=== PATIENT | female | born 1980 | race Asian ===

== ENCOUNTER 2018-11-07 17:45 | Inpatient (IN) | payer OTHER ==
[2018-12-23] MEDS ORDERED: CARBOPROST 250 MCG INJ IM ×2 (16:00→22:00)
[2018-12-23] MEDS ORDERED: METHYLERGONOVINE 0.2 MG INJ IM ×2 (16:00→22:00)
[2018-12-23] MEDS ORDERED: OXYTOCIN 30 UNITS/LR 500 ML IV ×2 (16:00→22:00)
[2018-12-23] MEDS ORDERED: MISOPROSTOL 200 MCG TAB PR ×2 (16:00→22:00)
[2018-12-23 16:14] LABS: ADD MAN DIFF? NO
[2018-12-23 16:17] LABS: WHITE BLOOD COUNT 7.5 10^3/ul (4.8-10.8)
[2018-12-23 16:17] LABS: BASOPHILS % 0.3 % (0.0-2.0); EOSINOPHILS # 0.1 10^3/ul (0.0-0.5); EOSINOPHILS % 1.7 % (0.0-7.0); HEMATOCRIT 42.3 % (37.0-47.0); HEMOGLOBIN 13.7 g/dl (12.0-16.0); LYMPHOCYTES # 1.6 10^3/ul (0.8-2.9); LYMPHOCYTES % 21.6 % (15.0-51.0); MEAN CORPUSCULAR HEMOGLOBIN 29.6 pg (29.0-33.0); MEAN CORPUSCULAR HGB CONC 32.4 g/dl (32.0-37.0); MEAN CORPUSCULAR VOLUME 91.4 fl (82.0-101.0); MEAN PLATELET VOLUME 9.8 fl (7.4-10.4); MONOCYTE # 0.4 10^3/ul (0.3-0.9); MONOCYTES % 5.3 % (0.0-11.0); NEUTROPHIL # 5.3 10^3/ul (1.6-7.5); NEUTROPHILS % 70.4 % (39.0-77.0); PLATELET COUNT 247 10^3/UL (140-415); RED BLOOD COUNT 4.63 10^6/ul (4.20-5.40); RED CELL DISTRIBUTION WIDTH 14.3 % (11.5-14.5)
[2018-12-23] MEDS: LACTATED RINGER'S 1,000 ML IV (16:21)
[2018-12-23] MEDS: CEFAZOLIN 2 GM/50 ML (PMX) 50 ML IVPB ×2 (16:28→22:27)
[2018-12-23 16:36] LABS: INR 0.82; PROTIME 11.4 Sec (11.9-14.9); PT RATIO 0.9
[2018-12-23 16:37] LABS: PARTIAL THROMBOPLASTIN TIME 29.5 Sec (23.0-35.0)
[2018-12-23] MEDS ORDERED: FENTAnyl 50 MCG/ML VIAL (16:38)
[2018-12-23] MEDS ORDERED: DEXAMETHASONE 4 MG/ML 1 ML INJ (16:38)
[2018-12-23] MEDS ORDERED: morphine SULFATE/PF (10 MG/10 ML) INJ (16:38)
[2018-12-23] MEDS ORDERED: ONDANSETRON 4 MG INJ (16:38)
[2018-12-23] MEDS ORDERED: PHENYLephrine (100 MCG/ML) 10ML SYG (16:59)
[2018-12-23 17:27] LABS: HEPATITIS B SURFACE ANTIGEN NEGATIVE (NEGATIVE)
[2018-12-23] MEDS ORDERED: KETOROLAC 60 MG INJ IM (18:22)
[2018-12-23] MEDS ORDERED: HYDROmorphONE 0.5 MG/0.5 ML SYG IV ×2 (19:00)
[2018-12-23] MEDS ORDERED: NALOXONE (0.4 MG/ML) INJ IV (19:00)
[2018-12-23] MEDS ORDERED: DIPHENHYDRAMINE 50 MG INJ IV (19:00)
[2018-12-23] MEDS ORDERED: ZOLPIDEM 5 MG TAB PO (19:00)
[2018-12-23] MEDS: OXYTOCIN 30 UNITS/LR 500 ML IV (19:09)
[2018-12-23] MEDS: AZITHROMYCIN 500MG/NS (PMX) 250 ML IVPB (19:30)
[2018-12-23] MEDS: KETOROLAC 30 MG INJ IM (19:31)
[2018-12-23] MEDS: ONDANSETRON 4 MG INJ IV (20:46)
[2018-12-23] MEDS ORDERED: LANOLIN HPA 1 PKT TOP (22:00)
[2018-12-23] MEDS ORDERED: NA PHOSPHATE/BIPHOS 133 ML ENEMA PR (22:00)
[2018-12-23] MEDS: CLINDAMYCIN 300 MG CAP PO (23:34)
[2018-12-24] MEDS: LACTATED RINGER'S 1,000 ML IV ×3 (00:59→17:30)
[2018-12-24] MEDS: CLINDAMYCIN 300 MG CAP PO ×4 (06:11→23:56)
[2018-12-24] MEDS: CEFAZOLIN 2 GM/50 ML (PMX) 50 ML IVPB ×2 (06:11→13:34)
[2018-12-24 06:48] LABS: ADD MAN DIFF? NO
[2018-12-24 06:49] LABS: WHITE BLOOD COUNT 13.7 10^3/ul (4.8-10.8)
[2018-12-24 06:49] LABS: BASOPHILS % 0.2 % (0.0-2.0); EOSINOPHILS % 0.1 % (0.0-7.0); HEMATOCRIT 29.6 % (37.0-47.0); HEMOGLOBIN 9.5 g/dl (12.0-16.0); LYMPHOCYTES # 1.4 10^3/ul (0.8-2.9); LYMPHOCYTES % 10.1 % (15.0-51.0); MEAN CORPUSCULAR HEMOGLOBIN 29.5 pg (29.0-33.0); MEAN CORPUSCULAR HGB CONC 32.1 g/dl (32.0-37.0); MEAN CORPUSCULAR VOLUME 91.9 fl (82.0-101.0); MEAN PLATELET VOLUME 10.3 fl (7.4-10.4); MONOCYTE # 0.6 10^3/ul (0.3-0.9); MONOCYTES % 4.7 % (0.0-11.0); NEUTROPHIL # 11.5 10^3/ul (1.6-7.5); NEUTROPHILS % 84.1 % (39.0-77.0); PLATELET COUNT 231 10^3/UL (140-415); RED BLOOD COUNT 3.22 10^6/ul (4.20-5.40); RED CELL DISTRIBUTION WIDTH 14.2 % (11.5-14.5)
[2018-12-24] MEDS: ACCU-CHEK XX ×4 (07:30→20:57)
[2018-12-24] MEDS: metFORMIN (XR) 500 MG TAB PO ×2 (09:09→20:57)
[2018-12-24] MEDS: SENNA/DOCUSATE NA (8.6MG/50MG) TAB PO ×2 (09:10→20:57)
[2018-12-24] MEDS: BISACODYL 10 MG SUPP PR (10:51)
[2018-12-24] MEDS: KETOROLAC 30 MG INJ IV ×2 (11:29→17:20)
[2018-12-24 15:05] LABS: RAPID PLASMA REAGIN NONREACTIVE (NR)
[2018-12-24] MEDS: IBUPROFEN 800 MG TAB PO (21:52)
[2018-12-25] MEDS: IBUPROFEN 800 MG TAB PO ×3 (05:39→21:57)
[2018-12-25] MEDS: CLINDAMYCIN 300 MG CAP PO ×3 (05:39→17:29)
[2018-12-25] MEDS: ACCU-CHEK XX ×3 (07:30→13:50)
[2018-12-25 07:49] LABS: ADD MAN DIFF? NO
[2018-12-25 07:56] LABS: BASOPHILS % 0.3 % (0.0-2.0); EOSINOPHILS # 0.2 10^3/ul (0.0-0.5); EOSINOPHILS % 1.5 % (0.0-7.0); HEMATOCRIT 26.9 % (37.0-47.0); HEMOGLOBIN 8.6 g/dl (12.0-16.0); LYMPHOCYTES # 1.5 10^3/ul (0.8-2.9); LYMPHOCYTES % 13.2 % (15.0-51.0); MEAN CORPUSCULAR HEMOGLOBIN 29.8 pg (29.0-33.0); MEAN CORPUSCULAR VOLUME 93.1 fl (82.0-101.0); MEAN PLATELET VOLUME 10.1 fl (7.4-10.4); MONOCYTE # 0.6 10^3/ul (0.3-0.9); MONOCYTES % 5.3 % (0.0-11.0); NEUTROPHIL # 8.7 10^3/ul (1.6-7.5); NEUTROPHILS % 78.8 % (39.0-77.0); PLATELET COUNT 227 10^3/UL (140-415); RED BLOOD COUNT 2.89 10^6/ul (4.20-5.40); RED CELL DISTRIBUTION WIDTH 14.6 % (11.5-14.5)
[2018-12-25] MEDS: OXYCODONE/ACETAMINOPHEN (5/325) TAB PO (08:03)
[2018-12-25] MEDS: metFORMIN (XR) 500 MG TAB PO ×2 (08:57→21:13)
[2018-12-25] MEDS: SENNA/DOCUSATE NA (8.6MG/50MG) TAB PO ×2 (08:57→21:13)
[2018-12-25] MEDS: HYDROCODONE/APAP (5/325) TAB PO ×2 (11:39→15:52)
[2018-12-26] MEDS: CLINDAMYCIN 300 MG CAP PO ×3 (00:27→12:44)
[2018-12-26] MEDS: IBUPROFEN 800 MG TAB PO (05:39)
[2018-12-26 06:46] LABS: ADD MAN DIFF? NO
[2018-12-26 06:58] LABS: BASOPHILS % 0.3 % (0.0-2.0); EOSINOPHILS # 0.3 10^3/ul (0.0-0.5); EOSINOPHILS % 3.1 % (0.0-7.0); HEMATOCRIT 28.9 % (37.0-47.0); HEMOGLOBIN 9.4 g/dl (12.0-16.0); LYMPHOCYTES # 1.6 10^3/ul (0.8-2.9); LYMPHOCYTES % 15.5 % (15.0-51.0); MEAN CORPUSCULAR HEMOGLOBIN 29.9 pg (29.0-33.0); MEAN CORPUSCULAR HGB CONC 32.5 g/dl (32.0-37.0); MEAN PLATELET VOLUME 9.9 fl (7.4-10.4); MONOCYTE # 0.4 10^3/ul (0.3-0.9); MONOCYTES % 3.7 % (0.0-11.0); NEUTROPHILS % 76.2 % (39.0-77.0); PLATELET COUNT 257 10^3/UL (140-415); RED BLOOD COUNT 3.14 10^6/ul (4.20-5.40); RED CELL DISTRIBUTION WIDTH 14.6 % (11.5-14.5)
[2018-12-26 06:58] LABS: WHITE BLOOD COUNT 10.5 10^3/ul (4.8-10.8)
[2018-12-26] MEDS: metFORMIN (XR) 500 MG TAB PO (08:59)
[2018-12-26] MEDS: SENNA/DOCUSATE NA (8.6MG/50MG) TAB PO (09:00)
[2018-12-26] MEDS: DIPHTH/TET/ACEL PERTUSS (ADULT) 0.5 ML VIAL IM* (12:20)
[2018-12-26] MEDS: HYDROCODONE/APAP (5/325) TAB PO (12:45)
== END 2018-12-26 15:05 | disposition home or self-care (01) | DRG 788 ==
LOC: OBT 17:45 → L-D 12-23 11:58 → OBT 12-23 15:30 → L-D 12-23 15:30 → PP1 12-23 21:03
PROVIDERS: Obstetrics & Gynecology
PROC: 10D00Z1 Extraction of Products of Conception, Low, Open Approach (ICD-10-PCS; principal; 2018-12-23 15:45)
DX: O34.211 Maternal care for low transverse scar from previous cesarean delivery (principal); O24.429 Gestational diabetes mellitus in childbirth, unspecified control; O32.1XX0 Maternal care for breech presentation, not applicable or unspecified; Z3A.37 37 weeks gestation of pregnancy; Z37.0 Single live birth
CPT/HCPCS: 82962; 85025; 85610; 85730; 86592; 86850; 86870; 86900; 86901; 87340; 90715; 99464